=== PATIENT | female | born 1995 | race Caucasian/White ===

== ENCOUNTER 2021-01-20 00:56 | Emergency (ER) | payer OTHER ==
[2021-01-20 01:29] VITALS: BP 115/66; PULSE 84; TEMP 98.4; BMI 17.4
[2021-01-20 02:51] LABS: BASO % 0.4 % (0-2.0); EOS % 0.2 % (0-4.5); HEMATOCRIT 40.5 % (32.4-45.2); HEMOGLOBIN 13.7 GM/dL (10.7-15.3); LYMPH % 8.3 % (8-40); MCH 27.2 pg (25.7-33.7); MCHC 33.8 g/dl (32.0-36.0); MEAN CELL VOLUME 80.7 fl (80-96); MEAN PLT VOLUME 9.4 fl (7.5-11.1); MONO % 2.7 % (3.8-10.2); NEUT % 88.4 % (42.8-82.8); PLATELET COUNT 225 10^3/uL (134-434); RBC 5.02 M/mm3 (3.60-5.2); RDW 12.7 % (11.6-15.6); WHITE BLOOD COUNT 13.4 K/mm3 (4.0-10.0)
[2021-01-20 03:15] LABS: CHLORIDE 106 mmol/L (98-107); SODIUM 138 mmol/L (136-145)
[2021-01-20 03:18] LABS: ALBUMIN 3.9 g/dl (3.4-5.0); ANION GAP 7 MMOL/L (8-16); BLOOD UREA NITROGEN 7.3 mg/dL (7-18); CO2 25 mmol/L (21-32); GLUCOSE,RANDOM 92 mg/dL (74-106)
[2021-01-20 03:21] LABS: CREATININE 0.8 mg/dL (0.55-1.3); SGOT/AST 43 U/L (15-37); SGPT/ALT 22 U/L (13-61)
[2021-01-20 03:23] LABS: TOT PROT 7.1 g/dl (6.4-8.2)
[2021-01-20 03:24] LABS: ALK PHOS 57 U/L (45-117)
[2021-01-20 03:30] LABS: BILIRUBIN,TOTAL 0.6 mg/dL (0.2-1); CALCIUM 8.6 mg/dL (8.5-10.1)
[2021-01-20] MEDS ORDERED: SODIUM CHLORIDE 0.9% 1000 ML INFUS.BAG IV ONE (05:06)
[2021-01-20 06:07] LABS: PH,URINE 6.5 (5.0-8.0); URINE APPEARANCE CLEAR; URINE BILIRUBIN NEGATIVE (NEGATIVE); URINE COLOR YELLOW; URINE GLUCOSE (UA) NEGATIVE (NEGATIVE); URINE KETONE NEGATIVE (NEGATIVE); URINE LEUK ESTERASE NEGATIVE (NEGATIVE); URINE NITRITE NEGATIVE (NEGATIVE); URINE PROTEIN NEGATIVE (NEGATIVE); URINE UROBILINOGEN 0.2 mg/dL (0.2-1.0)
== END 2021-01-20 06:19 | disposition home or self-care (01) ==
LOC: JER 00:56
DX: R07.89 Other chest pain (principal); R74.8 Abnormal levels of other serum enzymes
CPT/HCPCS: 36415; 71046-TC-FY; 71275-TC; 80053; 81003; 82550; 82553; 84484; 84703; 85025; 85379; 93005; 93010; 99285-25; C9803; U0003; U0005

== ENCOUNTER 2022-03-04 18:15 | Emergency (ER) | payer OTHER ==
[2022-03-04 18:25] VITALS: BP 93/59; PULSE 75; RESP 20; TEMP 97.2; BMI 18.1
[2022-03-04] MEDS ORDERED: ONDANSETRON 4 MG/2 ML VIAL IVPUSH ONE (19:58)
[2022-03-04] MEDS ORDERED: ACETAMINOPHEN 1000 MG/100 ML BAG IVPB ONE (19:58)
[2022-03-04] MEDS ORDERED: FAMOTIDINE 20 MG/50 ML IVPB 20 MG/50 ML MG IVPB ONE ×2 (19:58→20:02)
[2022-03-04] MEDS ORDERED: MAG HYDROX/AL HYDROX/SIMETH 30 ML UNIT-DOSE CUP PO ONE (19:58)
[2022-03-04] MEDS ORDERED: SODIUM CHLORIDE 1,000 ML IV STA (19:58)
[2022-03-04] MEDS ORDERED: MAG HYDROX/AL HYDROX/SIMETH 30 ML UNIT-DOSE CUP ONE (20:02)
[2022-03-04] MEDS ORDERED: ONDANSETRON 4 MG/2 ML VIAL ONE (20:02)
[2022-03-04] MEDS ORDERED: ACETAMINOPHEN INJECTION 100 ML IVPB ONE (20:02)
[2022-03-04 21:06] LABS: BASO % 0.9 % (0-2.0); EOS % 1.7 % (0-4.5); HEMATOCRIT 39.3 % (32.4-45.2); LYMPH % 39.9 % (8-40); MCH 26.8 pg (25.7-33.7); MEAN CELL VOLUME 81.2 fl (80-96); MEAN PLT VOLUME 9.4 fl (7.5-11.1); MONO % 11.6 % (3.8-10.2); NEUT % 45.9 % (42.8-82.8); PLATELET COUNT 261 10^3/uL (134-434); RBC 4.84 M/mm3 (3.60-5.2); WHITE BLOOD COUNT 6.1 K/mm3 (4.0-10.0)
[2022-03-04 21:11] LABS: EPI CELLS >36 /uL (0-25.1); HCG,QUALITATIVE URINE Negative; HYALINE CASTS 4 /uL (0-3.1); URINE APPEARANCE CLEAR; URINE BACTERIA 365 /uL (0-1359); URINE BILIRUBIN NEGATIVE (NEGATIVE); URINE COLOR YELLOW; URINE GLUCOSE (UA) NEGATIVE (NEGATIVE); URINE KETONE TRACE (NEGATIVE); URINE LEUK ESTERASE TRACE (NEGATIVE); URINE NITRITE NEGATIVE (NEGATIVE); URINE PROTEIN TRACE (NEGATIVE); URINE RBC 16 /uL (0-23.9); URINE WBC 44 /uL (0-25.8)
[2022-03-04 21:26] LABS: ALBUMIN 3.4 g/dl (3.4-5.0); BLOOD UREA NITROGEN 7.7 mg/dL (7-18); CALCIUM 8.6 mg/dL (8.5-10.1)
[2022-03-04 21:29] LABS: CREATININE 0.7 mg/dL (0.55-1.3)
[2022-03-04 21:32] LABS: BILIRUBIN,TOTAL 0.2 mg/dL (0.2-1)
== END 2022-03-04 23:31 | disposition home or self-care (01) ==
LOC: JER 18:15
PROC: 3E0333Z Introduction of Anti-inflammatory into Peripheral Vein, Percutaneous Approach (ICD-10-PCS; principal; 2022-03-04)
PROC: 3E033GC Introduction of Other Therapeutic Substance into Peripheral Vein, Percutaneous Approach (ICD-10-PCS; 2022-03-04)
PROC: 3E033GC Introduction of Other Therapeutic Substance into Peripheral Vein, Percutaneous Approach (ICD-10-PCS; 2022-03-04)
PROC: 3E0337Z Introduction of Electrolytic and Water Balance Substance into Peripheral Vein, Percutaneous Approach (ICD-10-PCS; 2022-03-04)
DX: R10.9 Unspecified abdominal pain (principal)
CPT/HCPCS: 36415; 71046-TC-FY; 76705-TC; 80053; 81003; 83690; 84703; 85025; 87086; 93005; 93010; 99285-25

== ENCOUNTER 2022-08-03 00:35 | Emergency (ER) | payer OTHER ==
[2022-08-03 00:50] VITALS: BP 129/77; PULSE 81; RESP 18; TEMP 98.1; BMI 17.4
[2022-08-03] MEDS ORDERED: IBUPROFEN 600 MG TABLET (FP) PO ONE ×2 (01:20→01:24)
[2022-08-03] MEDS ORDERED: BENZOCAINE/MENTH/CETYLPYRD CL 1 EACH LOZENGE MM ONE ×2 (01:20→01:24)
[2022-08-03 01:37] LABS: THROAT:GRP A STREP NOT DETECTED (NOTDETECTED)
== END 2022-08-03 02:03 | disposition home or self-care (01) ==
LOC: JER 00:35
DX: R05.1 Acute cough (principal); R07.0 Pain in throat
CPT/HCPCS: 0241U-QW; 87651; 99283-25

== ENCOUNTER 2022-08-28 00:04 | Emergency (ER) | payer OTHER ==
[2022-08-28 00:11] VITALS: BP 104/74; PULSE 113; RESP 18; TEMP 99.2; BMI 18.0
[2022-08-28] MEDS ORDERED: FAMOTIDINE 20 MG TABLET PO ONE (00:52)
[2022-08-28] MEDS ORDERED: ONDANSETRON *ODT* 4 MG TABLET SL ONE (00:52)
[2022-08-28] MEDS ORDERED: ONDANSETRON *ODT* 4 MG TABLET ONE (00:56)
[2022-08-28] MEDS ORDERED: FAMOTIDINE 20 MG TABLET ONE (00:56)
[2022-08-28] MEDS ORDERED: IBUPROFEN 600 MG TABLET (FP) PO ONE ×2 (01:13→01:31)
[2022-08-28] MEDS ORDERED: SODIUM CHLORIDE 0.9% 500 ML INFUS.BAG IV ONE (01:15)
[2022-08-28 03:19] LABS: URINE APPEARANCE Error; URINE BILIRUBIN NEGATIVE (NEGATIVE); URINE COLOR YELLOW; URINE GLUCOSE (UA) NEGATIVE (NEGATIVE); URINE KETONE NEGATIVE (NEGATIVE); URINE LEUK ESTERASE NEGATIVE (NEGATIVE); URINE NITRITE NEGATIVE (NEGATIVE); URINE PROTEIN NEGATIVE (NEGATIVE); URINE UROBILINOGEN 0.2 mg/dL (0.2-1.0)
== END 2022-08-28 04:00 | disposition home or self-care (01) ==
LOC: JER 00:04
DX: R10.13 Epigastric pain (principal); R11.0 Nausea; M79.10 Myalgia, unspecified site; Z20.822 Contact with and (suspected) exposure to COVID-19
CPT/HCPCS: 0241U-QW; 81003; 87086; 99283-25; Q0162

== ENCOUNTER 2022-09-05 20:08 | Emergency (ER) | payer OTHER ==
[2022-09-05 20:21] VITALS: BP 105/69; PULSE 79; RESP 18; TEMP 97.9; BMI 18.6
[2022-09-05 21:29] LABS: EPI CELLS >36 /uL (0-25.1); HYALINE CASTS 2 /uL (0-3.1); PH,URINE 6.5 (5.0-8.0); URINE APPEARANCE CLOUDY; URINE BACTERIA 725 /uL (0-1359); URINE BILIRUBIN NEGATIVE (NEGATIVE); URINE COLOR ORANGE; URINE GLUCOSE (UA) NEGATIVE (NEGATIVE); URINE KETONE NEGATIVE (NEGATIVE); URINE LEUK ESTERASE 2+ (NEGATIVE); URINE NITRITE NEGATIVE (NEGATIVE); URINE PROTEIN 2+ (NEGATIVE); URINE RBC 4516 /uL (0-23.9); URINE WBC 299 /uL (0-25.8)
[2022-09-05 21:30] LABS: HCG,QUALITATIVE URINE Negative
[2022-09-05 22:29] LABS: HEMATOCRIT 39.8 % (32.4-45.2); HEMOGLOBIN 13.2 GM/dL (10.7-15.3); MCHC 33.1 g/dl (32.0-36.0); MEAN CELL VOLUME 78.6 fl (80-96); MEAN PLT VOLUME 8.9 fl (7.5-11.1); PLATELET COUNT 296 10^3/uL (134-434); RBC 5.07 M/mm3 (3.60-5.2); RDW 12.8 % (11.6-15.6); WHITE BLOOD COUNT 9.8 K/mm3 (4.0-10.0)
[2022-09-05 22:50] LABS: BLOOD UREA NITROGEN 11.6 mg/dL (7-18); CALCIUM 9.2 mg/dL (8.5-10.1)
[2022-09-05 22:51] LABS: ALBUMIN 3.9 g/dl (3.4-5.0)
[2022-09-05 22:54] LABS: CREATININE 0.7 mg/dL (0.55-1.3)
[2022-09-05 22:55] LABS: BILIRUBIN,TOTAL 0.4 mg/dL (0.2-1); TOT PROT 7.4 g/dl (6.4-8.2)
== END 2022-09-05 23:35 | disposition home or self-care (01) ==
LOC: JER 20:08
DX: N30.91 Cystitis, unspecified with hematuria (principal)
CPT/HCPCS: 36415; 80053; 81003; 84703; 85027; 87086; 99283-25

== ENCOUNTER 2023-05-11 01:25 | Emergency (ER) | payer OTHER ==
[2023-05-11] MEDS ORDERED: ONDANSETRON *ODT* 4 MG TABLET SL ONE (01:39)
[2023-05-11 01:43] VITALS: BP 109/67; PULSE 79; RESP 18; TEMP 98.3; BMI 19.0
[2023-05-11] MEDS ORDERED: ONDANSETRON *ODT* 4 MG TABLET ONE (01:53)
== END 2023-05-11 03:29 | disposition home or self-care (01) ==
LOC: JER 01:25
DX: R11.2 Nausea with vomiting, unspecified (principal); R05.9 Cough, unspecified; R07.0 Pain in throat; J34.89 Other specified disorders of nose and nasal sinuses; Z20.822 Contact with and (suspected) exposure to COVID-19
CPT/HCPCS: 0241U-QW; 87651; 99283-25; Q0162